=== PATIENT | female | born 2000 | race African-American/Black ===

== ENCOUNTER 2020-01-28 04:41 | Emergency (ER) | payer OTHER ==
--- NOTE | 2020-01-28 05:00 | PDOC ---
Attending Attestation - Resident Resident Name: Mayur Fregoso - ED Attending Attestation I have performed the following: I have examined & evaluated the patient, The case was reviewed & discussed with the resident, I agree w/resident's findings & plan - HPI HPI: 01/28/20 06:34 Pt comes with her sister who has blood stained cough,. Pt also has CP; worse when she lies down. Her sister was treated with zpak by us for an atypical cough/pneumonia - Physicial Exam PE: 01/28/20 06:35 Normal heart and lung gamb[place] pt is afebrile abd soft NT ND no flank pain normal extremities. - Medical Decision Making 01/28/20 06:33 Pt will be discharged home with motrin for her chest wall pain as well as zpak for her cough 01/28/20 06:36 Pt should follow with PMD/medical clinic Discharge - Discharge Information Problems reviewed: Yes Clinical Impression/Diagnosis: Cough, Sore throat Condition: Stable Disposition: HOME - Additional Discharge Information Prescriptions: Azithromycin [Zithromax 250mg Tablets -] 250 mg PO UTDICT #6 tab - Follow up/Referral Referrals: [facility] [place] [facility] [place] [Provider Group] - Patient Discharge Instructions Patient Printed Discharge Instructions: DI for Cough -- Adult Additional Instructions: Please continue to wear your mask when you are in public spaces. Follow up with Primary care in the next 14 days. We are referring you to the [facility], call the number attached to schedule an appointment. We are sending antibiotics to your pharmacy (the medicine cabinet); please pick them up and take as prescribed. Take ibuprofen as directed by the label for pain. Return to the Emergency Department if you experience new, worsening, or concerning symptoms. - Post Discharge Activity
[2020-01-28 05:11] VITALS: BP 110/65; PULSE 86; TEMP 98; BMI 34.3
--- NOTE | 2020-01-28 05:30 | PDOC ---
History of Present Illness - General Chief Complaint: Chest Pain Stated Complaint: CHEST PAIN Time Seen by Provider: 01/28/20 04:51 History Source: Patient Exam Limitations: No Limitations - History of Present Illness Initial Comments: 01/28/20 05:24 19F w/o known pmh presenting for evaluation of 3-4 days of coughing, sore throat, and chest pain with the cough. Denies f/c, sob. Patient has multiple chronic complaints that has been ongoing for 1-1.5 years that are unchanged. No PCP. NKDA. Endorses etoh and smoking. Recently moved to [place] but requesting PMD in [place]. accompanied by sister and mother. Past History - Medical History Allergies/Adverse Reactions: Allergies Allergy/AdvReac Type Severity Reaction Status Date / Time No Known Allergies Allergy Verified 01/28/20 05:09 Home Medications: Ambulatory Orders Albuterol Sulfate Inhaler - [Ventolin HFA Inhaler -] 2 inh PO Q4H PRN #1 inh 03/22/16 Levofloxacin 750 mg PO DAILY #4 tablet 03/22/16 predniSONE [Deltasone -] 20 mg PO BID #14 tablet 03/22/16 Azithromycin [Zithromax 250mg Tablets -] 250 mg PO UTDICT #6 tab 01/28/20 Anemia: No Asthma: Yes Cancer: No Cardiac Disorders: No CVA: No COPD: No CHF: No Dementia: No Diabetes: Yes GI Disorders: No Disorders: No HTN: No Hypercholesterolemia: No Liver Disease: No Seizures: No Thyroid Disease: No - Surgical History Abdominal Surgery: No Appendectomy: No Cardiac Surgery: No Cholecystectomy: No Lung Surgery: No Neurologic Surgery: No Orthopedic Surgery: No - Reproductive History Is Patient Now?: No - Psycho-Social/Smoking History Smoking History: Never smoked Have you smoked in the past 12 months: No Number of Cigarettes Smoked Daily: 3 Information on smoking cessation initiated: No - Substance Abuse Hx (Audit-C & DAST Scrn) How often the patient has a drink containing alcohol: Never Score: In Men: 4 or > Positive; In Women: 3 or > Positive: 0 Screen Result (Pos requires Nsg. Audit-10AR): Negative In the last yr the pt used illegal drug/Rx for NonMed reason: No Score: Yes response is considered Positive: 0 Screen Result (Positive result requires Nsg. DAST-10): Negative Review of Systems - Review of Systems Comments:: CONSTITUTIONAL: Denies F / C HEENT: + sore throat RESP: + cough. Denies SOB CARD: + chest pain with cough GI: Denies N / V / D : Denies dysuria, hematuria NEURO: Denies numbness, tingling, weakness MSK: Denies back pain SKIN: Denies rashes *Physical Exam - Vital Signs Last Vital Signs Temp Pulse Resp BP Pulse Ox 98.0 F 86 20 110/65 99 01/28/20 05:10 01/28/20 05:10 01/28/20 05:10 01/28/20 05:10 01/28/20 05:10 - Physical Exam GEN: Well appearing, NAD, comfortable. AAOx3. HEENT: NC/AT, EOMI, PERRL. No facial asymmetry. Moist mucous membranes. Normal voice. Supple neck w/ FROM. CV: S1/S2, RRR, no m/r/g LUNG: CTAB, no wheezes, crackles, rales, rhonchi. GI: Soft, ndnt, +BS, no guarding, no rebound. MSK: No obvious deformities of all extremities. SKIN: Warm, dry, no rashes appreciated. PSYCH: Normal mood and affect. NEURO: Moving all extremities well. ambulatory. Medical Decision Making - Medical Decision Making 19F w/ 3-4 days of coughing, sore throat, and chest pain w/ cough. Reassuring exam. Constellation of symptoms consistent with URI. Obtain EKG, CXR Pt will be referred to [facility] for further evaluation of chronic but u nchanged complaints. Plan to dc home w/ PCP referral and f/u 01/28/20 06:08 CXR appears w/o obvious pathology EKG 05:24 HR 70 NSR intervals and axis nl, no BRITT/D, no TWI DC home as above and Rx sent Discharge - Discharge Information Problems reviewed: Yes Clinical Impression/Diagnosis: Cough, Sore throat Condition: Stable Disposition: HOME - Admission No - Additional Discharge Information Prescriptions: Azithromycin [Zithromax 250mg Tablets -] 250 mg PO UTDICT #6 tab - Follow up/Referral Referrals: [facility] [place] [facility] [Provider Group] - Patient Discharge Instructions Patient Printed Discharge Instructions: DI for Cough -- Adult Additional Instructions: Please continue to wear your mask when you are in public spaces. Follow up with Primary care in the next 14 days. We are referring you to the [facility], call the number attached to schedule an appointment. We are sending antibiotics to your pharmacy (the medicine cabinet); please pick them up and take as prescribed. Take ibuprofen as directed by the label for pain. Return to the Emergency Department if you experience new, worsening, or concerning symptoms. - Post Discharge Activity
--- OUTSIDE RECORDS SUMMARY | 2020-01-28 05:39 | XMS ---
:2000 Author Organization [facility] Care Team Providers Name Role Phone ReeseOlga PA Unavailable Unavailable Reese, Olga PA Unavailable Unavailable Reese, Olga PA Unavailable Unavailable Reese, Olga PA Unavailable Unavailable Reese, Olga PA Unavailable Unavailable Reese, Olga PA Unavailable Unavailable Reese, Olga PA Unavailable Unavailable Reese, Olga PA Unavailable Unavailable Glynn PLATE PREPARER, Iris Unavailable [ ] Glynn PLATE PREPARER, Iris Unavailable [ ] Glynn PLATE PREPARER, Iris Unavailable [ ] Glynn PLATE PREPARER, Iris Unavailable [ ] Glynn PLATE PREPARER, Iris Unavailable [ ] Glynn PLATE PREPARER, Iris Unavailable [ ] Glynn PLATE PREPARER, Iris Unavailable [ ] Glynn PLATE PREPARER, Iris Unavailable [ ] Glynn PLATE PREPARER, Iris Unavailable [ ] Glynn PLATE PREPARER, Iris Unavailable [ ] Glynn PLATE PREPARER, Iris Unavailable [ ] Glynn PLATE PREPARER, Iris Unavailable [ ] Glynn PLATE PREPARER, Iris Unavailable [ ] Glynn PLATE PREPARER, Iris Unavailable [ ] Jay Sanchez MD Unavailable Jay Sanchez MD Unavailable Jay Sanchez MD Unavailable Daniel CRISTOBAL, Jay Unavailable + Daniel CRISTOBAL, Jay Unavailable + Frengle-Eldridge, Alessandra Unavailable Unavailable Frengle-Eldridge, Alessandra Unavailable Unavailable Frengle-Eldridge, Alessandra Unavailable Unavailable Frengle-Eldridge, Alessandra Unavailable Unavailable Frengle-Eldridge, Alessandra Unavailable Unavailable Frengle-Eldridge, Alessandra Unavailable Unavailable Frengle-Eldridge, Alessandra Unavailable Unavailable Frengle-Eldridge, Alessandra Unavailable Unavailable Frengle-Eldridge, Alessandra Unavailable Unavailable Frengle-Eldridge, Alessandra Unavailable Unavailable Frengle-Eldridge, Alessandra Unavailable Unavailable Frengle-Eldridge, Alessandra Unavailable Unavailable Bertrand HDEZ Lety Unavailable [ ] Bertrand HDEZ Lety Unavailable [ ] Bertrand HDEZ Lety Unavailable [ ] Jonah New Unavailable Naye Pena MD Unavailable Unavailable Jaravaza, H MD Unavailable Unavailable Jaravaza, H MD Unavailable Unavailable Jaravaza, H MD Unavailable Unavailable Jaravaza, H MD Unavailable Unavailable Jaravaza, H MD Unavailable Unavailable Jaravaza, H MD Unavailable Unavailable Jaravaza, H MD Unavailable Unavailable Jaravaza, H MD Unavailable Unavailable Jaravaza, H MD Unavailable Unavailable Jaravaza, H MD Unavailable Unavailable Jaravaza, H MD Unavailable Unavailable Jaravaza, H MD Unavailable Unavailable Jaravaza, H MD Unavailable Unavailable GUNNER GUILLERMO Unavailable Unavailable Re-disclosure Warning The records that you are about to access may contain information from federally- assisted alcohol or drug abuse programs. If such information is present, then the following federally mandated warning applies: This information has been disclosed to you from records protected by federal confidentiality rules (42 CFR part 2). The federal rules prohibit you from making any further disclosure of this information unless further disclosure is expressly permitted by the written consent of the person to whom it pertains or as otherwise permitted by 42 CFR part 2. A general authorization for the release of medical or other information is NOT sufficient for this purpose. The Federal rules restrict any use of the information to criminally investigate or prosecute any alcohol or drug abuse patient.The records that you are about to access may contain highly sensitive health information, the redisclosure of which is protected by Article 27-F of the [facility] Public Health law. If you continue you may haveaccess to information: Regarding HIV / AIDS; Provided by facilities licensed or operated by the [facility] Office of Mental Health; or Provided by the [facility] Office for People With Developmental Disabilities. If such information is present, then the following [facility] mandated warning applies: This information has been disclosed to you from confidential records which are protected by state law. State law prohibits you from making any further disclosure of this information without the specific written consent of the person to whom it pertains, or as otherwise permitted by law. Any unauthorized further disclosure in violation of state law may result in a fine or alf sentence or both. A general authorization for the release of medical or other information is NOT sufficient authorization for further disclosure. Allergies and Adverse Reactions Type Description Substance Reaction Status Data Source(s ) Observed no Observed no known Observed no Observed no Cent ricity known allergies allergies at known allergies known allergies ([facility] at at at Famil y Observed no Healthcare) known allergies at Observed no known allergies at 1 Drug allergy No Known Drug No Known Drug NONE [facility] Allergies Allergies Hospital Encounters Encounter Providers Location Date Indications Data Source(s ) Emergency Attender: ABUNDIO 09/04/2018 CHEST PAIN, [place] [facility] JUANARA 03:13:00 PM DIFFICULTY Hospital EDT - BREATHING, HEAD 09/04/2018 [place] 04:47[place]00 PM EDT CHEST PAIN, DIFFICULTY BREATHING, [place] Out[place] 07/15/2018 07:21:00 Tono Sifuentes ([facility]) Outpatient Attender: Rosita 08/09/2015 12:00:00 Dwayne HDEZ EDT - 08/10/[address] ([facility] 11:38:10 AM EDT [facility]) Outpatient Attender: Naye 07/15/2015 12:00:00 Beena Pena MD AM EDT - 07/15/2015 ([facility] 06:22:22 PM EDT [facility]) [facility] 12:00:00 Beena Pena MD AM EDT - 07/15/2015 ([facility] 06:21:01 PM EDT [facility]) [facility] 07/15/2015 12:00:00 Beena Pena MD AM EDT - 07/15/2015 ([facility] 06:20:09 PM EDT [facility]) I SPOT Vision [facility] 07/15/2015 12:00:00 Beena Pena MD AM EDT - 07/15/2015 ([facility] 06:20:08 PM EDT [facility]) Outpatient Attender: Rosita 06/21/2015 12:00:00 C bryant HDEZ EST - 06/21/2015 ([facility] 01:00:52 PM EST [facility]) Outpatient Attender: Jonah 06/20/2015 12:00:00 Beena HDEZ AM EST - 06/20/2015 ([facility] 01:17:15 PM EST [facility]) Outpatient Attender: Rosita 06/05/2015 12:00:00 C bryant HDEZ EST - 06/05/2015 ([facility] 12:49:23 PM EST [facility]) Outpatient Attender: Jay 06/03/2015 12:00:00 Beena Sanchez MD AM EST - 06/03/2015 ([facility] 05:47:22 PM EST [facility]) [facility] 05/09/2015 12:00:00 Beena Pena MD AM EST - 05/09/2015 ([facility] 04:50:52 PM EST [facility]) Outpatient Attender: Rosita 02/13/2015 12:00:00 C bryant HDEZ AM EDT - 02/14/2015 ([facility] 12:53:54 PM EDT [facility]) [facility] 01/15/2015 12:00:00 Beena Pena MD AM EDT - 01/15/2015 ([facility] 10:41:16 AM EDT [facility]) SPECIMEN COLLECTION Attender: [facility] 09/04/2014 12:00:00 Wilfridoyanely Ibarrajesse JAVIERP AM EDT - 09/04/2014 ([facility] 09:42:01 AM EDT [facility]) Outpatient Attender: [facility] 09/04/2014 12:00:00 Dwayne Glynn PLATE PREPARER AM EDT - 09/04/2014 ([facility] 09:42:01 AM EDT [facility]) Outpatient 08/10/2014 12:00:00 Centr icity AM EDT - 08/10/2014 ([facility] 11:53:43 AM EDT [facility]) Outpatient 08/10/2014 12:00:00 Centr icity AM EDT - 08/10/2014 ([facility] 11:50:53 AM EDT [facility]) Outpatient Attender: Alessandra 08/03/2014 12:00:00 Centricity Liv AM EDT - 08/06/2014 ([facility] 11:53:31 AM EDT [facility]) Outpatient Attender: Olga 07/28/2014 12:00:00 Centricianila HDEZ AM EDT - 07/28/2014 ([facility] 05:16:46 PM EDT [facility]) Medications Medication Brand Start Product Dose Route Administrative Pharmacy [facility] Indications Reaction Description Data Name Date Form Instructions Instructions Source(s) Ibuprofen IBUPRO 08/08/ TABS 600 ORAL complet IBUPROFE N Centricity 600 MG Oral FEN 2016 MG ed 600 MG TABS ( [facility] Tablet 12:00: ne Family IBUPROFEN 00 AM Health[facility] e EDT ) Ibuprofen IBUPRO 08/08/ TABS 600 ORAL complet IBUPROFE N [facility] 600 MG Oral FEN 2016 MG ed 600 MG TABS ( [facility] Tablet 12:00: ne Family IBUPROFEN 00 AM Healthcar e EDT ) Sulfamethox SULFAM 07/14/ TABS ORAL complet SULFAM ETHOXA [facility] azole 400 ETHOXA 2015 ed ZOLE-TRIMETH ([facility] MG / ZOLE-T 12:00: OPRIM 400-80 ne Family Trimethopri RIMETH 00 AM MG TABS He althcare m 80 MG OPRIM EDT ) Oral Tablet SULFAMETHOX AZOLE-TRIME THOPRIM OD OD 07/01/ complet OD Centricity +2.25-0.75X +2.25- 2015 ed +2.25-0.75X 1 ([facility] 165 KUSUM 3PD 0.75X1 12:00: 65 KUSUM 3PD ne Family OS 65 KUSUM 00 AM OS Healthcare +3.25-1.25X 3PD EST +3.25-1.25X1 ) 170 KUSUM 3PD OS 70 KUSUM 3PD +3.25- 1.25X1 70 KUSUM 3PD NITROFURANT NITROF 06/21/ CAPS 100 ORAL complet MACROB ID 100 Cent[facility]ity OIN, URANTO 2016 MG ed MG CAPS ([facility] MACROCRYSTA IN 12:00: ne Fam blane LS 25 MG / MONOHY 00 AM Health care Nitrofurant D EST ) oin, MACRO Monohydrate 75 MG Oral Capsule [Macrobid] NITROFURANT OIN MONOHYD MACRO NITROFURANT NITROF 06/21/ CAPS 100 ORAL complet MACROB ID 100 [facility] OIN, URANTO 2016 MG ed MG CAPS ([facility] MACROCRYSTA IN 12:00: ne Fam blane LS 25 MG / MONOHY 00 AM Health care Nitrofurant D EST ) oin, MACRO Monohydrate 75 MG Oral Capsule [Macrobid] NITROFURANT OIN MONOHYD MACRO Permethrin PERMET 06/03/ CREA 5 % EXT complet PERMETH RIN 5 [facility] 50 MG/ML HRIN 2015 ed % CREA ([facility] Topical 12:00: ne Family Cream 00 AM Healthcare PERMETHRIN EST ) 12 HR DEXTRO 05/09/ SUER 30 ORAL complet DELSYM 30 Ce ntricity dextrometho METHOR 2016 MG/5M ed MG/5ML [facility] L ne Family polistirex POLIST 00 AM Health care 6 MG/ML IREX EST ) Extended Release Suspension [Delsym] DEXTROMETHO RPHAN POLISTIREX 12 HR DEXTRO 14/ SUER 30 ORAL complet DELSYM 30 Ce ntricity dextrometho METHOR 2016 MG/5M ed MG/5ML [facility] 12:00: L ne Family polistirex POLIST 00 AM Health care 6 MG/ML IREX EST ) Extended Release Suspension [Delsym] DEXTROMETHO RPHAN POLISTIREX Ibuprofen IBUPRO 05/09/ TABS 200 ORAL complet IBUPROFE N [facility] 200 MG Oral FEN 2016 MG ed 200 MG TABS ( [facility] Tablet 12:00: ne Family IBUPROFEN 00 AM Healthcar e EST ) cetirizine CETIRI 01/15/ SYRP 1 ORAL complet ZYRTEC Cent[facility]ity hydrochlori ZINE 2015 MG/ML ed CHILDRENS ([facility] de 1 MG/ML HCL 12:00: ALLERGY 1 ne Family Oral 00 AM MG/ML SYRP Health[facility] re Solution EDT ) [Zyrtec] CETIRIZINE HCL cetirizine CETIRI 01/15/ SYRP 1 ORAL complet ZYRTEC [facility] hydrochlori ZINE 2015 MG/ML ed CHILDRENS (C [facility] de 1 MG/ML HCL 12:00: ALLERGY 1 ne Family Oral 00 AM MG/ML SYRP Healthca re Solution EDT ) [Zyrtec] CETIRIZINE HCL MULTIPLE MULTIP 08/10/ TABS ORAL complet MULTIPLE [facility] VITAMINS-IR LE 2014 ed VITAMINS/IRO ([facility] ON VITAMI 12:00: N TABS ne Family NS-IRO 00 AM Healthcare N EDT ) cetirizine CETIRI 07/28/ TABS 10 MG ORAL complet ZYRTEC [facility] hydrochlori ZINE 2014 ed ALLERGY 10 (C [facility] de 10 MG HCL 12:00: MG TABS ne Fam blane Oral Tablet 00 AM Healthc are [Zyrtec] EDT ) CETIRIZINE HCL Ibuprofen IBUPRO 07/28/ TABS 600 ORAL complet IBUPROFE N [facility] 600 MG Oral FEN 2015 MG ed 600 MG TABS ( [facility] Tablet 12:00: ne Family IBUPROFEN 00 AM Healthcar e EDT ) Ondansetron ONDANS 07/28/ TABS 4 MG ORAL complet ZOFRAN 4 MG Centricity 4 MG Oral ETRON 2014 ed TABS ([facility] Tablet HCL 12:00: ne Family [Zofran] 00 AM Healthcare ONDANSETRON EDT ) HCL Dextrometho DEXTRO 07/28/ SYRP ORAL complet ROBITU SSIN Cent[facility] rphan METHOR 2014 ed DM 100-10 ([facility] Hydrobromid ABAD-G 12:00: MG/5ML SY RP ne Family e 2 MG/ML / UAIFEN 00 AM Healt hcare Guaifenesin ESIN EDT ) 20 MG/ML Oral Solution [Robitussin DM] DEXTROMETHO RPHAN-GUAIF ENESIN NITROFURANT NITROF 07/28/ CAPS 100 ORAL complet MACROB ID 100 Centricity OIN, URANTO 2014 MG ed MG CAPS ([facility] MACROCRYSTA IN 12:00: ne Fam blane LS 25 MG / MONOHY 00 AM Health care Nitrofurant D EDT ) oin, MACRO Monohydrate 75 MG Oral Capsule [Macrobid] NITROFURANT OIN MONOHYD MACRO MELATONIN MELATO 07/28/ TABS 3 MG ORAL complet [facility] tricity ROSALINA 2014 ed MELATONIN 3 ([facility] 12:00: MG TABS ne Family 00 AM Healthcare EDT ) Clonidine CLONID 07/28/ TABS 0.1 ORAL complet CATAPRES 0.1 Cent[facility]ity Hydrochlori INE 2015 MG ed MG TABS ([facility] de 0.1 MG HCL 12:00: ne Famil y Oral Tablet 00 AM Healthc are [Catapres] EDT ) CLONIDINE HCL Clonidine CLONID 07/28/ TABS 0.1 ORAL complet CATAPRES 0.1 [facility] Hydrochlori INE 2015 MG ed MG TABS ([facility] de 0.1 MG HCL 12:00: ne Famil y Oral Tablet 00 AM Healthc are [Catapres] EDT ) CLONIDINE HCL NITROFURANT NITROF 07/28/ CAPS 100 ORAL complet MACROB ID 100 Cent[facility]ity OIN, URANTO 2014 MG ed MG CAPS ([facility] MACROCRYSTA IN 12:00: ne Fam blane LS 25 MG / MONOHY 00 AM Health care Nitrofurant D EDT ) oin, MACRO Monohydrate 75 MG Oral Capsule [Macrobid] NITROFURANT OIN MONOHYD MACRO cetirizine CETIRI 07/28/ TABS 10 MG ORAL complet ZYRTEC [facility] hydrochlori ZINE 2014 ed ALLERGY 10 (C [facility] de 10 MG HCL 12:00: MG TABS ne Fam blane Oral Tablet 00 AM Healthc are [Zyrtec] EDT ) CETIRIZINE HCL Ondansetron ONDANS 07/28/ TABS 4 MG ORAL complet ZOFRAN 4 MG Centricity 4 MG Oral ETRON 2014 ed TABS ([facility] Tablet HCL 12:00: ne Family [Zofran] 00 AM Healthcare ONDANSETRON EDT ) HCL Dextrometho DEXTRO 07/28/ SYRP ORAL complet ROBITU SSIN Centricity rphan METHOR 2014 ed DM 100-10 ([facility] Hydrobromid ABAD-G 12:00: MG/5ML SY RP ne Family e 2 MG/ML / UAIFEN 00 AM Healt hcare Guaifenesin ESIN EDT ) 20 MG/ML Oral Solution [Robitussin DM] DEXTROMETHO RPHAN-GUAIF ENESIN Metformin METFOR 07/28/ TABS 1000 ORAL complet GLUCOPHA GE [facility] hydrochlori MIN 2014 MG ed 1000 MG TABS ([facility] de 1000 MG HCL 12:00: ne Fami ly Oral Tablet 00 AM Health are [Glucophage EDT ) ] METFORMIN HCL Lurasidone LURASI 07/28/ TABS 40 MG ORAL complet LATUDA 40 MG Cent[facility]ity Hydrochlori DONE 2014 ed TABS ([facility] de 40 MG HCL 12:00: ne Family Oral Tablet 00 AM Health are [Latuda] EDT ) LURASIDONE HCL Clonidine CLONID 07/28/ TABS 0.1 ORAL complet CATAPRES 0.1 Centricity Hydrochlori INE 2015 MG ed MG TABS ([facility] de 0.1 MG HCL 12:00: ne Famil y Oral Tablet 00 AM [facility] are [Catapres] EDT ) CLONIDINE HCL Cholecalcif Cholec CAPSULE 1000 complet Daily [facility] [place] 1000 alcife ed [facility] UNT Oral rol Hospital Capsule (Vitam Cholecalcif in D sloan 1000 (Vitamin D Units 1000 Units Cap) Cap) 1,000 1,000 Unit Unit Capsule Capsul e Fluoxetine Fluoxe TABLET 30 mg complet Daily White 10 MG Oral quincy ed [facility] Capsule [facility] Hospital [Prozac] (Proza Fluoxetine c*) 10 Hcl Mg Tab (Prozac*) 10 Mg Tab 24 HR Metfor TABLET 1000 complet Daily White Metformin min 24 HR mg ed [facility] hydrochlori Hcl SUSTAINE Hosp ital de 750 MG 750 Mg D Extended Tab.sr RELEASE Release .24h Oral Tablet [Glucophage ] Metformin Hcl 750 Mg Tab.sr.24h Ascorbic Ascorb TABLET 250 complet Daily Whi te Acid 250 MG ic mg ed [facility] Oral Tablet Acid Hospital Ascorbic (Vitam Acid in C*) (Vitamin 250 Mg C*) 250 Mg Tablet Tablet Insurance Providers Payer name Policy type Policy ID Covered Covered democrat's Policy P ismael / Coverage democrat ID relationship to Jones Inf ormation type jones MEDICAID [id number] MEDICAID [id number] Medicaid [id number] Regular Clinic Visit Problems, Conditions, and Diagnoses Code Display Name Description Problem Type Effective Data Sour ce(s) Dates M79.1 Musculoskeletal Musculoskeletal Diagnosis 08/09/2015 Cent ricity pain pain 12:00:00 AM ([facility]) Z00.129 Encounter for Well Child, Diagnosis 07/15/2015 Centricity routine child adolescent 12:00:00 AM ([facility] health examination EDT Family without abnormal [facility] re) findings N39.0 Urinary tract Urinary tract Diagnosis 07/15/2015 Centrici ty infection, acute infection, acute 12:00:00 AM ( [facility]) 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 08/19/2015 [facility]) 12:00:00 AM EDT R63.1 Polydipsia Polydipsia Diagnosis 06/20/2015 Cent[facility] 12:00:00 AM ([facility] 08/19/2015 [facility]) 12:00:00 AM EDT H57.12 Eye pain, left Eye pain, left Diagnosis 06/05/2015 [place] 12:00:00 AM ([facility]) R51 Headache Headache Diagnosis 06/05/2015 [facility] 12:00:00 AM ([facility]) Z20.7 Exposure to scabies Exposure to scabies Diagnosis 016 Centricity 12:00:00 AM ([facility]) J06.9 Upper respiratory Upper respiratory Diagnosis 05/09/2015 Cent[facility]ity infection, acute infection, acute 12:00:00 AM ( [facility]) T14.8 Abrasion Abrasion Diagnosis 02/13/2015 Cent[facility] 12:00:00 AM ([facility]) K00.6 Disturbances in Disturbances in Diagnosis 02/08/2015 Cent ricity tooth eruption tooth eruption 12:00:00 AM ([facility]) J30.2 Allergic rhinitis, Allergic rhinitis, Diagnosis 5 Centricity seasonal, mild seasonal, mild 12:00:00 AM ([facility]) Z01.419 ROUTINE ROUTINE Diagnosis 09/04/2014 [facility] GYNECOLOGICAL GYNECOLOGICAL 12:00:00 AM ([facility] EXAMINATION EXAMINATION [facility]) Z30.09 Contraceptive Contraceptive Diagnosis 09/04/2014 Centrici ty management management 12:00:00 AM ([facility]) K05.6 Unspecified Unspecified Diagnosis 08/17/2014 Cent[facility]ity gingival and gingival and 12:00:00 AM ([facility] one periodontal disease periodontal disease [facility]) K36 Other appendicitis Dental caries, Diagnosis 08/17/2014 Ce ntricity unspecified 12:00:00 AM ([facility]) K36 Other appendicitis Dental caries, Diagnosis 08/17/2014 Ce ntricity unspecified 12:00:00 AM ([facility]) E11.9 Diabetes mellitus, Diabetes mellitus, Diagnosis 5 Centricity type II type II 12:00:00 AM ([facility]) Z00.00 Well Adolescent Well Adolescent Diagnosis 08/10/2014 Cent ricity Exam Exam 12:00:00 AM ([facility] 09/09/2014 [facility]) 12:00:00 AM EDT Z00.129 Encounter for Well Child, Diagnosis 08/10/2014 Centricity routine child adolescent 12:00:00 AM ([facility] ne health examination [facility] without abnormal Health[facility] re) findings 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 Diagnosis 08/10/2014 Centric ity disorder of 12:00:00 AM ([facility]) 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 12:00:00 AM ([facility]) F20.9 Schizophrenia Schizophrenia Diagnosis 08/03/2014 Centrici ty 12:00:00 AM ([facility]) R11.10 Vomiting Vomiting Diagnosis 07/28/2014 Cent[facility]ity 12:00:00 AM ([facility]) N39.0 URINARY TRACT URINARY TRACT Diagnosis 07/28/2014 Centrici ty INFECTION INFECTION 12:00:00 AM ([facility]) J02.9 Acute pharyngitis, J02.9 Diagnosis 09/04/2018 [place] unspecified 03:55:00 PM Hospital EDT R51 Headache R51 Diagnosis 09/04/2018 [place] 03:55:00 PM Hospital EDT R07.89 Other chest pain R07.89 Diagnosis 09/04/[place] 03:55:00 PM Hospital EDT R13.10 Dysphagia, R13.10 Diagnosis 09/04/2018 [place] unspecified 03:55:00 PM Hospital EDT R06.02 Shortness of breath R06.02 Diagnosis 09/04/2018 [place] 03:55:00 PM Hospital EDT B34.9 Viral infection, B34.9 Diagnosis 09/04/[address] [place] unspecified 03:55:00 PM Hospital EDT 995.22 UNSPECIFIED ADVERSE Adv Eff Anesthesia Diagnosis 06/25/19 19 NATY ([place] EFFECT OF NOS 03:47:41 PM [place] ANESTHESIA [facility]) Surgeries/Procedures Procedure Description Date Indications Data Source(s) X-ray of chest, PA and X-ray of chest, PA 09/04/2018 [place] lateral views and lateral views 12:00:00 AM Hospital EDT EKG EKG 09/04/2018 [place] (electrocardiogram) (electrocardiogram) 12:00:00 AM H ospital EDT URINE TEST 08/09/2015 Centric ity 12:00:00 AM ([facility] re) 08/10/2015 11:38:10 AM EDT GLUCOSE FINGER STICK 08/09/2015 Centric ity 12:00:00 AM ([facility]) 08/10/2015 11:38:10 AM EDT NUTRITION INITIAL 07/19/2015 Cent[facility]ity ASSESSMENT INDIV EA 15 12:00:00 AM ([facility]) 07/25/2015 11:49:27 AM EDT URINALYSIS, ROUTINE 07/15/2015 Centrici ty 12:00:00 AM ([facility]) 07/18/2015 12:00:00 AM EDT GC + CHLAMYDIA, AMP. 07/15/2015 Centric ity DNA URINE 12:00:00 AM ([facility]) 07/18/2015 12:00:00 AM EDT Urine Culture 07/15/2015 Cent[facility]ity 12:00:00 AM ([facility]) 07/18/2015 12:00:00 AM EDT GLUCOSE FINGER STICK 07/15/2015 Centric ity 12:00:00 AM ([facility]) 07/15/2015 06:34:21 PM EDT ENDOCRINOLOGY 07/15/2015 [facility] CONSULTATION 12:00:00 AM ([facility]) 09/19/2015 12:00:00 AM EDT URINALYSIS DIP STICK 07/15/2015 Centric ity 12:00:00 AM ([facility]) 07/15/2015 06:20:09 PM EDT URINE TEST 07/15/2015 Centric ity 12:00:00 AM ([facility]) 07/15/2015 06:20:09 PM EDT ALERE 4TH GEN RAPID 07/15/2015 Centrici ty HIV 12:00:00 AM ([facility]) 07/15/2015 06:20:08 PM EDT HEARING SCREENING 07/15/2015 Cent[facility] 12:00:00 AM ([facility]) 07/15/2015 06:20:08 PM EDT HGB FINGER STICK 07/15/2015 [facility] 12:00:00 AM ([facility]) 07/15/2015 06:20:08 PM EDT Refraction 07/02/2015 Cent[facility]ity 12:00:00 AM ([facility]) 07/02/2015 12:00:00 AM EST Established Patient 07/02/2015 Centrici ty Comprehensive Eye exam 12:00:00 AM ([facility]) 07/02/2015 12:00:00 AM EST Urine Culture 06/21/2015 Cent[facility]ity 12:00:00 AM ([facility]) 06/26/2015 09:34:38 AM EST URINALYSIS DIP STICK 06/21/2015 Centric ity 12:00:00 AM ([facility]) 06/21/2015 01:00:51 PM EST URINE TEST 06/20/2015 Centric ity 12:00:00 AM ([facility]) 06/20/2015 01:17:15 PM EST URINE TEST 06/20/2015 Centric ity 12:00:00 AM ([facility]) 06/20/2015 01:09:56 PM EST URINALYSIS DIP STICK 06/20/2015 Centric ity 12:00:00 AM ([facility]) 06/20/2015 01:09:56 PM EST URINALYSIS DIP STICK 06/20/2015 Centric ity 12:00:00 AM ([facility]) 06/20/2015 01:09:56 PM EST GLUCOSE FINGER STICK 06/20/2015 Centric ity 12:00:00 AM ([facility]) 06/20/2015 01:09:56 PM EST GLUCOSE FINGER STICK 06/20/2015 Centric ity 12:00:00 AM ([facility]) 06/20/2015 01:09:55 PM EST OPTOMETRY CONSULTATION 06/05/2015 Centr icity 12:00:00 AM ([facility]) 08/02/2015 12:00:00 AM EDT CULTURE, THROAT, 05/09/2015 Cent[facility]ity ROUTINE 12:00:00 AM ([facility]) 05/14/2015 01:26:45 PM EST RAPID STREP 05/09/2015 Centricity 12:00:00 AM ([facility] EST [facility] re) 05/09/2015 08:10:11 PM EST ALERE 4TH GEN RAPID 02/13/2015 Centrici ty HIV 12:00:00 AM ([facility] re) 02/14/2015 12:53:54 PM EDT Periapical/ Dental 02/08/2015 Centricit y X-Ray 12:00:00 AM ([facility] re) 02/08/2015 03:33:57 PM EDT Dental Visit 02/08/2015 Centricity 12:00:00 AM ([facility] re) 02/08/2015 01:26:35 PM EDT Dental Visit 12/06/2014 Centricity 12:00:00 AM ([facility] re) 12/07/2014 12:00:00 AM EDT Dental Visit 11/01/2014 Centricity 12:00:00 AM ([facility] re) 11/02/2014 12:00:00 AM EDT Dental Visit 09/26/2014 Cent[facility]ity 12:00:00 AM ([facility] re) 09/26/2014 01:36:05 PM EDT STI W/O PAP 09/04/2014 [facility]ity 12:00:00 AM ([facility] re) 09/07/2014 09:21:13 AM EDT SCREENING PAP SMEAR; 09/04/2014 Centric ity OBTAINING, PREPARING 12:00:00 AM ([place] [facility] CERVICAL 09/04/2014 09:42:01 AM EDT URINE TEST 09/04/2014 Centric ity 12:00:00 AM ([facility] re) 09/04/2014 09:42:01 AM EDT URINALYSIS DIP STICK 09/04/2014 Centric ity 12:00:[address] [facility] 09/04/2014 09:42:00 AM EDT [facility]/ Dental 08/17/2014 Centricit y X-Ray 12:00:00 AM ([facility]) 08/17/2014 01:58:24 PM EDT [place]/ Dental 08/17/2014 Centricit y X-Ray 12:00:00 AM ([facility]) 08/18/2014 12:00:00 AM EDT Dental Visit 08/17/2014 Centricity 12:00:00 AM ([facility]) 08/17/2014 01:49:19 PM EDT N.GONORRHEA/C.TRACHOMA 08/10/2014 Centr icity TIS AMP.DNA, URINE 12:00:00 AM ([facility]) 08/20/2014 09:32:00 AM EDT URINE TEST 08/10/2014 Centric ity 12:00:00 AM ([facility]) 08/10/2014 11:50:53 AM EDT HIV RAPID TEST 08/10/2014 [facility]ity 12:00:00 AM ([facility]) 02/09/2015 12:00:00 AM EDT HEARING SCREENING 08/10/2014 [facility] 12:00:00 AM ([facility]) 02/09/2015 12:00:00 AM EDT HGB FINGER STICK 08/10/2014 [facility] 12:00:00 AM ([facility]) 02/09/2015 12:00:00 AM EDT Free T4 08/10/2014 [facility]ity 12:00:00 AM ([facility]) 08/28/2014 12:00:00 AM EDT Complete Metabolic 08/10/2014 Centricit y Panel 12:00:00 AM ([facility]) 08/28/2014 12:00:00 AM EDT TSH (THYROID 08/10/2014 [facility] STIMULATING HORMONE) 12:00:00 AM ([facility]) 08/20/2014 09:32:00 AM EDT T3 UPTAKE 08/10/2014 [facility] 12:00:00 AM ([facility]) 08/20/2014 09:32:00 AM EDT LIPID SCREEN (CORONARY 08/10/2014 Centr icity RISK I) 12:00:00 AM ([facility]) 08/20/2014 09:32:00 AM EDT CBC with Differential 08/10/2014 [place] 12:00:00 AM ([facility]) 08/20/2014 09:32:00 AM EDT GLUCOSE FINGER STICK 07/28/2014 Centric ity 12:00:00 AM ([facility]) 07/28/2014 04:53:23 PM EDT URINE TEST 07/28/2014 Centric ity 12:00:00 AM ([facility]) 07/28/2014 04:53:23 PM EDT URINALYSIS DIP STICK 07/28/2014 Centric ity 12:00:00 AM ([facility]) 07/28/2014 04:53:23 PM EDT RAPID INFLUENZA B 07/28/2014 [facility]ity 12:00:00 AM ([facility]) 07/28/2014 04:53:23 PM EDT RAPID INFLUENZA A 07/28/2014 [facility]ity 12:00:00 AM ([facility]) 07/28/2014 04:53:23 PM EDT Results ID Date Data Source HematologyRou 03/19/2018 04:15:00 PM EST [facility] Name Value Range Interpretation Description Data Sup porting Code Source(s) Document(s ) Leukocytes 4.4-11.0 <content [facility] [#/volume] in styleCode="Bold Jose Blood by ">White Blood Medical Automated count Cell Count Center </content>10.78 KCUMM<content styleCode="Ital ics"> (4.4-11.0 KCUMM)</content > Erythrocyte mean 80.0-100 <content [facility] corpuscular .0 styleCode="Bold Jose volume [Entitic ">Mean Medical volume] by Corpuscular Center Automated count Volume </content>80.7 FL<content styleCode="Ital ics"> (80.0-100.0 FL)</content> Erythrocytes 4.0-5.1 <content [facility] [#/volume] in styleCode="Bold Jose Blood by ">Red Blood Medical Automated count Cell Count Center </content>4.50 MCUMM<content styleCode="Ital ics"> (4.0-5.1 MCUMM)</content > Erythrocyte mean 26.0-34. Below low normal <content [facility] corpuscular 0 styleCode="Bold Jose hemoglobin ">Mean Medical [Entitic mass] Corposcular Center by Automated Hemoglobin count </content>25.6 PG L<content styleCode="Ital ics"> (26.0-34.0 PG)</content> Hematocrit 36.0-46. <content Saint [Volume 0 styleCode="Bold Jose Fraction] of ">Hematocrit Medical Blood by </content>36.3 Center Automated count %<content styleCode="Ital ics"> (36.0-46.0 %)</content> Hemoglobin 12.3-16. Below low normal <content Saint [Mass/volume] in 0 styleCode="Bold Jose Blood ">Hemoglobin Medical </content>11.5 Center G/DL L<content styleCode="Ital ics"> (12.3-16.0 G/DL)</content> Erythrocyte mean 32.0-37. Below low normal <content [facility] corpuscular 0 styleCode="Bold Jose hemoglobin ">Mean Corpus. Medical concentration Hgb Center [Mass/volume] by Concentration Automated count (MCHC) </content>31.7 G/DL L<content styleCode="Ital ics"> (32.0-37.0 G/DL)</content> Erythrocyte 11.5-14. <content Saint distribution 5 styleCode="Bold Jose width [Ratio] by ">Red Cell Medical Automated count Distribution Center Width </content>14.0 %<content styleCode="Ital ics"> (11.5-14.5 %)</content> Platelets 130-400 Above high <content Saint [#/volume] in normal styleCode="Bold Jose Blood by ">Platelet Medical Automated count Count Center </content>506 KCUMM H<content styleCode="Ital ics"> (130-400 KCUMM)</content > UNK 0 <content Saint styleCode="Bold Jose ">Nucleated Red Medical Blood Cell Center </content>0.0 /100<content styleCode="Ital ics"> (0 /100)</content> UNK 0.0 <content Saint styleCode="Bold Jose ">Nucleated Red Medical Blood Cell Center Count </content>0.00 KCUMM<content styleCode="Ital ics"> (0.0 KCUMM)</content > Platelet mean 8.0-11.0 <content [facility] volume [Entitic styleCode="Bold Jose volume] in Blood ">Mean Platelet Medical by Automated Volume Center count </content>9.1 FL<content styleCode="Ital ics"> (8.0-11.0 FL)</content> ID Date Data Source GFR(Creatinine) 03/19/2018 04:15:00 PM [facility] Name Value Range Interpretation Code Description Data Bri rce(s) Supporting Document(s ) UNK > 60 <content [facility] styleCode="Bold"> Medical Cent er EGFR </content>137 GFR<content styleCode="Italic s"> (> 60 GFR)</content> ID Date Data Source BMP 03/19/2018 04:15:00 PM [facility] Name Value Range Interpretation Description Data Sup porting Code Source(s) Document(s ) Chloride 98-107 <content Saint [Moles/volume] styleCode="Mary Jose in Serum or d">Chloride Medical Plasma </content>105 Center MEQ/L<content styleCode="Suki lics"> (98-107 MEQ/L)</conten t> Potassium 3.5-5.3 <content Saint [Moles/volume] styleCode="Mary Jose in Serum or d">Potassium Medical Plasma </content>4.7 Center MEQ/L<content styleCode="Suki lics"> (3.5-5.3 MEQ/L)</conten t> Sodium 137-145 <content Saint [Moles/volume] styleCode="Mary Jose in Serum or d">Sodium Medical Plasma </content>138 Center MEQ/L<content styleCode="Suki lics"> (137-145 MEQ/L)</conten t> Creatinine 0.5-1.3 <content Saint [Mass/volume] styleCode="Mary Jose in Serum or d">Creatinine Medical Plasma </content>0.7 Center MG/DL<content styleCode="Suki lics"> (0.5-1.3 MG/DL)</conten t> Glucose 74-106 <content Saint [Mass/volume] styleCode="Mary Dcs in Serum or d">Glucose Medical Plasma </content>88 Center MG/DL<content styleCode="Suki lics"> (74-106 MG/DL)</conten t> Calcium 8.4-10.2 <content Saint [Mass/volume] styleCode="Mary Dcs in Serum or d">Calcium Medical Plasma </content>9.8 Center MG/DL<content styleCode="Suki lics"> (8.4-10.2 MG/DL)</conten t> UNK 7-17 Above high normal <content Saint styleCode="Mary Dcs d">BUN Medical </content>20 Center MG/DL H<content styleCode="Suki lics"> (7-17 MG/DL)</conten t> Carbon 22-30 <content Saint dioxide, total styleCode="Mary Garcia [Moles/volume] d">Carbon Medical in Serum or Dioxide Center Plasma </content>26 MEQ/L<content styleCode="Suki lics"> (22-30 MEQ/L)</conten t> UNK > 60 <content Saint styleCode="Mary Jose d">EGFR Medical </content>137 Center GFR<content styleCode="Suki lics"> (> 60 GFR)</content> ID Date Data Source Urinalysis 03/19/2018 04:10:00 PM EST [facility] Name Value Range Interpretation Description Data Sup porting Code Source(s) Document(s ) Color of Urine YELLOW <content Saint styleCode="Mary Garcia d">Color, Medical Urine Center </content>YELL OW <content styleCode="Suki lics"> (YELLOW )</content> Glucose NEGATIVE <content Saint [Mass/volume] styleCode="Mary Garcia in Urine by d">Urine Medical Test strip Glucose Center </content>NEGA TIVE MG/DL<content styleCode="Suki lics"> (NEGATIVE MG/DL)</conten t> UNK CLEAR <content Saint styleCode="Mary Dcs d">Urine Medical Clarity Center </content>ANILA R <content styleCode="Suki lics"> (CLEAR )</content> Hemoglobin NEGATIVE <content Saint [Presence] in styleCode="Mary Garcia Urine by Test d">Urine Blood Medical strip </content>SMAL Center L <content styleCode="Suki lics"> (NEGATIVE )</content> Ketones NEGATIVE <content Saint [Mass/volume] styleCode="Mary Garcia in Urine by d">Urine Medical Test strip Ketone Center </content>NEGA TIVE MG/DL<content styleCode="Suki lics"> (NEGATIVE MG/DL)</conten t> Specific 1.015-1.02 <content Saint gravity of 5 styleCode="Mary Garcia Urine by Test d">Urine Medical strip Specific Center [place] </content>1.02 5 NM<content styleCode="Suki lics"> (1.015-1.025 NM)</content> UNK NEGATIVE <content Saint styleCode="Mary Dcs d">Urine Medical Bilirubin Center </content>NEGA TIVE <content styleCode="Suki lics"> (NEGATIVE )</content> Nitrite NEGATIVE <content Saint [Presence] in styleCode="Mary Garcia Urine by Test d">Urine Medical strip Nitrite Center </content>NEGA TIVE <content styleCode="Suki lics"> (NEGATIVE )</content> Leukocyte NEGATIVE <content Saint esterase styleCode="Mary Garcia [Presence] in d">Urine Medical Urine by Test Leukocyte Center strip </content>NEGA TIVE <content styleCode="Suki lics"> (NEGATIVE )</content> pH of Urine by 4.5-8.0 <content Saint Test strip styleCode="Mary Jose d">Urine pH Medical </content>7.0 Center NM<content styleCode="Suki lics"> (4.5-8.0 NM)</content> Urobilinogen 0.2-1.0 <content Saint [Units/volume] styleCode="Mary Jose in Urine by d">Urine Medical Test strip Urobilinogen Center </content>0.2 MG/DL<content styleCode="Suki lics"> (0.2-1.0 MG/DL)</conten t> Protein NEGATIVE <content Saint [Mass/volume] styleCode="Mary Jose in Urine by d">Urine Medical Test strip Protein Center </content>NEGA TIVE MG/DL<content styleCode="Suki lics"> (NEGATIVE MG/DL)</conten t> UNK <content Saint styleCode="Mary Jose d">Epithelial Medical Cell Center </content>5 - 10 LPF (Reference Range: not available)<br/ > UNK 0-3 <content Saint styleCode="Mary Jose d">Urine Red Medical Blood Cell Center </content>5 - 10 HPF<content styleCode="Suki lics"> (0-3 HPF)</content> ID Date Data Source [id number] 08/09/2015 11:39:43 AM EDT Centric ity ([facility] [id number] [place] [address]) Name Value Range Interpretation Description Data Sup porting Code Source(s) Document(s ) blood glucose, 133 BG FINGER Centricity finger stick ([facility]) Choriogonadotropin Negative HCG PREG UR Centricit y ( test) ([facility] [Presence] in Urine [facility]) pH, urine, 8 PH URINE Centricity semiquantitative ([facility]) specific gravity, 1.005 SPEC GR URIN Centricit y urine ([facility]) glucose, urine, Negative GLUCOSE, URN Centricity semiquantitative ([facility]) Albumin [Presence] Negative PROTEIN, URN Centrici ty in Urine ([facility]) bilirubin, urine Negative BILIRUBIN UR Centricity ([facility]) urobilinogen, Negative UROBILIURDIP Centricity urine, by dipstick ([facility]) Nitrite Urine Negative NITRITE UA Centricity ([facility]) KETONES, URINE Negative KETONES UR Centricity ([facility]) BLOOD, URINE @50 BLOOD UR Centricity (hematuria) ([facility]) leukocyte esterase, Positive WBC DIPSTK U Centric ity urine, by dipstick ([facility]) urine color Yellow UA COLOR Centricity ([facility]) appearance, urine Clear APPEARANCE U Centricit y ([facility]) Documentation of Done MEDS REVIEWD Centricity current medications ([facility] (procedure) [facility]) ID Date Data Source [id number] 07/15/2015 06:34:00 PM EDT Centric ity ([facility] [id number] [place] [address]) Name Value Range Interpretation Description Data Sup porting Code Source(s) Document(s ) Neisseria NEGATIVE NEGATIVE Normal (applies NGONORAMPDNA Cent[facility]ity gonorrhoeae DNA to non-numeric ([place] [facility] [Presence] in results) [facility] Urine by [facility]) and target amplification method Leukocyte NEGATIVE NEGATIVE Normal (applies LEUES Centricity esterase to non-numeric ([place] [Presence] in results) [facility] Urine by Test [facility]) strip Chlamydia NEGATIVE NEGATIVE Normal (applies CHLAMYDIA AG Centricity trachomatis DNA to non-numeric ([place] [Presence] in results) [facility] Urine by [facility]) and target amplification method Bacteria FEW FEW Normal (applies UBACT Centricity [Presence] in to non-numeric ([facility] Urine sediment results) [facility] by Light [facility]) microscopy Crystals [type] FEW NONE Abnormal CRYSTALS Centricity in Urine (applies to ([facility] sediment by non-numeric [facility] Light results) [facility]) microscopy Granular casts NONE SEEN 0-1 Normal (applies GRAN CAST UR Centri city [#/area] in to non-numeric ([facility] Urine sediment results) [facility] by Microscopy [facility]) low power field Epithelial MANY FEW Abnormal EPI CELL UR [facility]ity cells ([facility]ence[facility] in non-numeric [facility] Urine sediment results) Healthcare) by Light microscopy Hyaline casts 0-4 0-4 Normal (applies HYAL CAST UR Centric ity [#/area] in to non-numeric ([place] Urine sediment results) e [facility] by Microscopy [facility]) low power field Leukocytes 0-4 PERHPF 0-4 Normal (applies WBC Centricity [#/area] in to non-numeric ([place] Urine sediment results) e [facility] by Microscopy [facility]) high power field Erythrocytes NONE SEEN 0-1 Normal (applies URBC Centricity [#/area] in PERLPF to non-numeric ([place] Urine sediment results) e [facility] by Microscopy [facility]) high power field Nitrite NEGATIVE NEGATIVE Normal (applies NITRITE URN [facility]ity [Presence] in to non-numeric ([place] Urine by Test results) [facility] strip [facility]) Crystals [type] OXALATE NONE Abnormal URINE BULL Centricity in Urine (applies to ([place] sediment by non-numeric e [facility] Light results) [facility]) microscopy Urobilinogen 1.0 UNITS 0.2 - 1.0 UROBILINO UR Centricity [Units/volume] ([place] in Urine by [facility] Test strip [facility]) Bacteria TO FOLLOW NO GROWTH Normal (applies URINE CULT Centricity identified in to non-numeric ([place] Urine by results) e [facility] Culture [facility]) Glucose NEGATIVE NEGATIVE Normal (applies GLUC UR JESSICA Centricity [Presence] in to non-numeric ([place] Urine by Test results) [facility] strip [facility]) ID Date Data Source [id number] 07/15/2015 05:04:46 PM EDT Centric ity ([facility] [id number] [facility]) Name Value Range Interpretation Description Data Sup porting Code Source(s) Document(s ) HIV rapid test Antigen HIVRAPIDRSLT Centricity results Non-Reacti ([facility] ve, [facility] Antibody [facility]) Non-Reacti ve HCG Urine test, 03/25/2016 HCGURIEXPDTE Centricity expiration date ([facility]) HCG Urine Test, [id number]# Centricity Lot # ([facility]) hemoglobin, 10.9 g/dL HGB POC Centricity blood, ([facility], [facility] point of care [facility]) Documentation Done MEDS REVIEW Centricity of current ([place] medications Family (procedure) Healthcare) Tobacco smoking Current SMOK STATUS Centricity status NHIS every day ([facility] smoker [facility]) Tobacco smoking Never ORALTOBACUSE Centricity status NHIS ([facility]) ID Date Data Source [id number] 06/03/2015 04:48:44 PM EST Centric ity ([facility] [id number] [facility]) Name Value Range Interpretation Description Data Sup porting Code Source(s) Document(s ) HIV test, HIVTESTDATE Centricity date of last 6 ([facility]) Smoking Yes SMOK ADVICE Cent[facility]ity cessation ([facility] education [facility] (procedure) [facility]) ID Date Data Source [id number] 05/09/2015 08:10:00 PM EST Centric ity ([facility] [id number] [facility]) Name Value Range Interpretation Description Data Sup porting Code Source(s) Document(s ) Bacteria SITE: NORMAL Abnormal (applies THROAT CULTR Centricit y identified in THROAT,# SATNAM to non-numeric ([place] e Throat by 1:... results) [facility] Culture Healthcare) ID Date Data Source [id number] 05/09/2015 04:02:35 PM EST Centric ity ([facility] [id number] Healthcare) Name Value Range Interpretation Description Data Sup porting Code Source(s) Document(s ) Streptococcus Negative RAPID STREP Centricity pyogenes DNA ([place] [Presence] in Family Throat by Probe [facility]) and target amplification method Adult depression 8 PHQ-9 SCORE Cent[facility]ity screening ([facility] assessment [facility]) ID Date Data Source [id number] 09/04/2014 09:42:00 AM EDT Centric ity ([facility] Family [id number] Healthcare) Name Value Range Interpretation Description Data Sup porting Code Source(s) Document(s ) Trichomonas Not Normal (applies TRICHOM DNA Centricity vaginalis rRNA Detected to non-numeric ([place] [Presence] in results) Family Unspecified Healthcare) specimen by Probe and target amplification method Mycoplasma Not Normal (applies MYCOPLASMAG Centricity genitalium DNA Detected to non-numeric ([place] [facility]Presence[facility] in results) [facility] by Probe and target amplification method Neisseria Not Normal (applies NGONOSDAVIAL Centricity gonorrhoeae DNA Detected to non-numeric ([place] [Presence] in results) Family Unspecified Healthcare) specimen by Probe and target amplification method Chlamydia Not Normal (applies CHLAMSDAVIAL Centricity trachomatis DNA Detected to non-numeric ([place] [facility] [Presence] in results) Family Unspecified [facility]) specimen by Probe and signal amplification method ID Date Data Source [id number] 08/17/2014 10:42:00 AM EDT Centric ity ([facility] [id number] [facility]) Name Value Range Interpretation Description Data Sup porting Code Source(s) Document(s ) Deprecated 2.5 1.5-3.8 FRT4 Centricity Thyroxine free ([facility] index in Serum or [facility] Plasma Healthcare) Thyroxine (T4) 7.2 4.7-11. T4, TOTAL Centricity [Mass/volume] in ug/dL 6 ([facility] Serum or Plasma [facility]) Thyroxine (T4) free 1.22 0.86-1. T4, FREE Centricity [Mass/volume] in ng/dL 58 ([facility] Serum or Plasma [facility]) Glucose 78 70-99 GLUCOSE SER Centricity [Mass/volume] in mg/dL ([facility] Serum or Plasma [facility]) Alanine 9 U/L <33 SGPT (ALT) Centricity aminotransferase ([facility] [Enzymatic e Family activity/volume] in Healthcare ) Serum or Plasma Alkaline 72 U/L <352 ALK PHOS Centricity phosphatase ([facility] [Enzymatic e Family activity/volume] in Healthcare ) Serum or Plasma Aspartate 16 U/L <32 SGOT (AST) Centricity aminotransferase ([facility] [Enzymatic e Family activity/volume] in Healthcare ) Serum or Plasma Bilirubin.total 0.2 <1.2 BILI TOTAL Centricity [Mass/volume] in mg/dL ([facility] Serum or Plasma [facility]) Urea 12.3 10.0-28 BUN/CR RATIO Centricity nitrogen/Creatinine .[facility] ([facility] in [facility] Serum or Plasma Healthcare) Calcium 10.1 8.8-10. CALCIUM Centricity [Mass/volume] in mg/dL 3 ([facility] Serum or Plasma [facility]) Creatinine 0.73 0.50-1. CREATININE Centricity [Mass/volume] in mg/dL 00 ([facility] Serum or Plasma [facility]) Carbon dioxide, 23 22-29 CO2 TOTAL Centricity total mmol/L ([facility] [Moles/volume] in [facility] Serum or [facility]) Urea nitrogen 9 mg/dL 5-18 BUN Centricity [Mass/volume] in ([facility] Serum or Plasma [facility]) Chloride 101 96-108 CHLORIDE Centricity [Moles/volume] in mmol/L ([facility] Serum or [facility]) Sodium 138 133-145 SODIUM Centricity [Moles/volume] in mmol/L ([facility] Serum or [facility]) Potassium 4.2 3.3-5.3 POTASSIUM Centricity [Moles/volume] in mmol/L ([facility] Serum or [facility]) Albumin/Globulin 1.8 1.1-2.9 A G RATIO Centricity [Mass Ratio] in ([facility] Serum or [facility]) Globulin 2.5 1.7-3.7 GLOBULIN TOT Centricity [Mass/volume] in g/dL ([facility] Serum [facility]) Protein 6.9 5.9-8.4 PROTEIN, TOT Centricity [Mass/volume] in g/dL ([facility] Serum or [facility]) Albumin 4.4 4.1-5.2 ALBUMIN Centricity [Mass/volume] in g/dL ([facility] Serum or [facility]) Platelet mean 8.5 fL 9.6-11. Below low normal MPV Centricit y volume [Entitic 7 ([facility] volume] in Blood by [facility] Automated count [facility]) Immature 0.2 % 0.0-0.3 IMM GRANU % Centricity granulocytes/100 ([facility] leukocytes in Blood [facility]) Platelets 486 194-345 Above high PLATELETS Centricity [#/volume] in Blood 10*3/mm normal ([place] [facility] by Automated count 3 [facility]) Basophils/100 0.3 % 0.0-0.6 BASOPHIL % Centricity leukocytes in Blood ([facility] n by Automated count [facility]) Mononuclear 7.8 % 4.1-10. MONOCYTE % Centricity cells/100 9 ([facility] leukocytes in Blood [facility] by Manual count [facility]) Eosinophils/100 3.2 % 0.0-3.4 EOSINOPHIL % Centricity leukocytes in Blood ([facility] by Automated count [facility]) Polymorphonuclear 53.5 39.0-73 MCRPOLSP FA Centricity cells/100 .6 ([facility] leukocytes in Blood [facility] by Manual count [facility]) Lymphocytes/100 35.0 % 18.2-49 LYMPHS % Centricity leukocytes in Blood .8 ([facility] n by Automated count [facility]) Erythrocyte 17.1 % 12.3-14 Above high RDW Centricity distribution width .6 normal ([facility] [Ratio] by [facility] Automated count [facility]) Erythrocyte mean 23.1 pg 24.8-30 Below low normal MCH Centri city corpuscular .2 ([facility] hemoglobin [Entitic [facility] mass] by Automated [facility] Center) count Erythrocyte mean 31.0 31.5-34 Below low normal MCHC RBC [facility] [place] corpuscular g/dL .2 ([facility] hemoglobin [facility] concentration [facility]) [Mass/volume] by Automated count Erythrocyte mean 74.4 fL 76.9-90 Below low normal MCV [facility] [place] corpuscular volume .6 ([facility] [Entitic volume] by [facility] Automated count [facility]) Hemoglobin 10.8 10.8-13 HGB [facility] [Mass/volume] in g/dL .3 ([facility] Blood [facility]) Hematocrit [Volume 34.8 % 33.4-40 HCT [facility] Fraction] of Blood .4 ([facility] by Automated count [facility]) Erythrocytes 4.68 3.93-4. RBC [facility] [#/volume] in Blood 10*6/mm 90 ([facility] by Automated count 3 [facility]) Triiodothyronine 35.2 % 24.3-39 T3RU [facility] resin uptake (T3RU) .0 ([facility] in Serum or Plasma [facility]) Thyrotropin 1.020 0.478-4 TSH [facility] [Units/volume] in u[iU]/m .380 ([facility] Serum or Plasma L [facility]) VLDL cholesterol 12 7-32 VLDL CHOL [facility] mg/dL ([facility]) cholesterol, 88 <130 NON-HDL CHOL [facility] non-HDL, total mg/dL ([facility]) Cholesterol in LDL 76 <100 LDLPLASMA [facility] [Mass/volume] in mg/dL ([facility] Serum or [facility]) Cholesterol in 1.55 <3.56 C-LDL/C-HDL [facility] LDL/Cholesterol in ([facility] HDL [Mass Ratio] in [facility] Serum or [facility]) Cholesterol in 36 % >14 HDL/CHOL % [facility] HDL/Cholesterol.tot ([facility] n al [Mass Ratio] in [facility] Serum or [facility]) Cholesterol.total/C 2.8 <5.8 NON-HDL/HDL [facility] holesterol in HDL ([facility] [Mass Ratio] in [facility] Serum or [facility]) Triglyceride 59 <150 TRIGLYCRDES [facility] [Mass/volume] in mg/dL ([facility] Serum or [facility]) Cholesterol in HDL 49 >50 Below low normal HDL Cent ricity [Mass/volume] in mg/dL ([facility] or [facility]) Cholesterol 137 <200 CHOL [facility] [Mass/volume] in mg/dL ([facility] Serum or [facility]) Procedure Social History Code Duration Value Status Description Data Source(s ) Smoking 03/19/2018 [id number] completed [facility] 04:24:00 PM [facility] EST Smoking 03/19/2018 [id number] completed [facility] 03:57:00 PM Medical Cent[facility] r EST Smoking 03/19/2018 [id number] [facility] 03:49:00 PM Medical Cente r EST Health-relate 07/15/2015 HIV RSK EVAL no completed HIV RSK EVAL no C entricity d behavior 05:04:46 PM ([facility] EDT [facility] 07/15/2015 [facility]) 05:04:46 PM EDT Details of 07/15/2015 DRUG USE yes completed DRUG USE yes [facility] drug misuse 05:04:46 PM ([facility] behavior EDT [facility] 07/15/2015 [facility]) 05:04:46 PM EDT Smoking 07/15/2015 Current every day completed Current every day [facility] 05:04:46 [facility]) 05:04:46 PM EDT Alcohol 07/15/2015 ALCOHOL COMM no completed ALCOHOL COMM no Cent ricity intake 05:04:46 PM ([facility] 07/15/2015 Healthcare) 05:04:46 PM EDT Tobacco use 06/03/2015 SMOK ADVICE Yes completed SMOK ADVICE Yes [facility] tricity and exposure 04:48:44 PM ([facility] 06/03/2015 Healthcare) 04:48:44 PM EST Tobacco use 06/03/2015 PAS CIG SMOK no completed PAS CIG SMOK no [place] tricity and exposure 04:48:44 PM ([facility] 06/03/2015 [facility]) 04:48:44 PM EST Exercise 08/10/2014 REGULAREXERC no completed REGULAREXERC no Cent ricity 10:30:19 AM ([facility] 08/10/2014 [facility]) 10:30:19 AM EDT Alcohol 08/10/2014 ETOH USE no completed ETOH USE no [facility] intake 10:30:19 AM ([facility] 08/10/2014 [facility]) 10:30:19 AM EDT Smoking Unknown if ever completed Unknown if ever Whit e Mcintosh smoked smoked Hospital Vital Signs ID Date Data Source UNK Name Value Range Interpretation Code Description Data Source(s) Body temperature 36.563101 36.258588 [facility] Respiratory rate 18 /min 18 /min [facility] Deprecated Oxygen 99 % 99 % [facility] ter Capillary blood by Oximetry Heart rate 77 /min 77 /min [facility] Systolic blood 66 mm[Hg] 66 mm[Hg] [facility] Diastolic blood 120 mm[Hg] 120 mm[Hg] [facility] Body temperature 37.321360 37.054895 [facility] Respiratory rate 17 /min 17 /min [facility] Deprecated Oxygen 100 % 100 % [facility] in [facility] ter Capillary blood by Oximetry Heart rate 80 /min 80 /min [facility] Systolic blood 74 mm[Hg] 74 mm[Hg] [facility] Diastolic blood 130 mm[Hg] 130 mm[Hg] [facility] Body temperature 36.888173 [id number] [facility] Respiratory rate 18 /min 18 /min [facility] Deprecated Oxygen 100 % 100 % [facility] osephs saturation in Medical [place] [facility] Capillary blood by Oximetry Heart rate 81 /min 81 /min [facility] Systolic blood 77 mm[Hg] 77 mm[Hg] [facility] Diastolic blood 139 mm[Hg] 139 mm[Hg] [facility] pressure [facility] Center Body weight 111.64 kg 111.64 kg [facility] Measured ([facility]) Respiratory rate 16 /min 16 /min Cent[facility] ty ([facility]) Deprecated Oxygen 99 % 99 % [facility] ity saturation in ([facility] Capillary blood by [facility] Oximetry [facility]) Heart rate 89 /min 89 /min [facility] ([facility]) Systolic blood 87 mm[Hg] 87 mm[Hg] [facility] pressure ([facility]) Diastolic blood 60 mm[Hg] 60 mm[Hg] [facility] y pressure ([facility]) Body temperature 98.01 98.01 [degF] [facility] [place] [degF] ([facility]) Body mass index 43.16 kg/m2 43.16 kg/m2 Cent[facility] ity (BMI) [Ratio] ([facility]) Body height 160.66 cm 160.66 cm [facility] ([facility]) Patient Treatment Plan of Care Planned Activity Planned Date Details Description Data Source (s) 24 HR Metformin hydrochloride [facility] 750 MG Extended Release Oral Tablet [Glucophage] Fluoxetine 10 MG Oral Capsule [facility] [Prozac] Cholecalciferol 1000 UNT Oral [facility] Capsule Asc[facility]ic [facility]
--- NOTE | 2020-01-28 19:54 | EKG ---
Test Reason : Blood Pressure : / mmHG Vent. Rate : 070 BPM Atrial Rate : 070 BPM P-R Int : 168 ms QRS Dur : 086 ms QT Int : 406 ms P-R-T Axes : 048 085 049 degrees QTc Int : 438 ms NORMAL SINUS RHYTHM WITH SINUS ARRHYTHMIA NONSPECIFIC T WAVE ABNORMALITY ABNORMAL ECG WHEN COMPARED WITH ECG OF 13-JUN-2014 09:08, T WAVE VARIATION Confirmed by SAL MARIO MD ([id number]) on 01/28/2020 7:53:33 PM Referred By: Confirmed By:SAL MARIO MD
== END 2020-01-28 06:58 | disposition home or self-care (01) ==
LOC: JER 04:41
DX: R05 Cough (principal); J02.9 Acute pharyngitis, unspecified
CPT/HCPCS: 71046-TC-FY; 93005; 93010; 99284-25